=== PATIENT | male | born 1985 | race Caucasian/White ===

== ENCOUNTER 2019-12-08 07:45 | Day surgery (SDC) | payer SELFPAY ==
[2019-12-08] VITALS (11 sets, daily range): BP systolic 136–160; BP diastolic 71–107; PULSE 67–89; RESP 16–18; TEMP 36.4–36.6; O2SAT 98–100
[2019-12-08] MEDS: Fleet Enema 133 mL Enema PR (08:05)
[2019-12-08] MEDS: sodium chloride 0.9% 1,000 ML 30 ML IV (08:11)
--- NOTE | 2019-12-08 08:14 | ANES.PREANE2 ---
Pre-Anesthetic Assessment Pre-Anesthetic Assessment: Height/Weight: Height 1.8 m Weight 83.007 kg Temp Pulse Resp BP Pulse Ox 97.8 F 67 16 137/83 99 12/08/19 07:55 12/08/19 07:55 12/08/19 07:55 12/08/19 07:55 12/08/19 07:55 Preop Diagnosis: Anal fistula Proposed Procedure: Operation Date: 12/08/19 09:00 Proposed Procedures p Exam Under Anesthesia/Rectal/67825 06133 K60.5 K61.2(Not Applicable) - Leonel Choe MD s Fistulotomy Anal/possible/possible seton placement(Not Applicable) - Leonel Choe MD Familial anesthetic complications: None Was Beta Dorcas taken within 24 hours: N/A Last intake: Intake Last Liquid Date 12/07/19 Last Liquid Time 22:00 Last Solid Date 12/07/19 Last Solid Time 18:00 Social: Social History: Tobacco Exam: Pre-Anes Outpt Exam: alert, oriented x 3, clear to auscultation bilaterally and regular rate & rhythm Airway: Cervical ROM: WNL MP: 1 Dentition: Chipped Pulmonary: Pulmonary: None reported CV/HEM: CV/HEM: None reported : : None reported Hepatic: Hepatic: None reported GI: GI: None reported Musc/skel: Musc/skel: None reported Neuropsych: Neuropsych: None reported Anesthetic Plan: ASA status: 1 Anesthesia: General Risk of > 500 ml blood loss (7ml/kg in children): No Meds/Allergies Current Medications: Current Medications Generic Name Dose Route Start Last Admin Trade Name Freq PRN Reason Stop Dose Admin Sodium Chloride 1,000 mls @ 30 ml s/hr 12/08/19 07:30 12/08/19 08:11 Sodium Chloride 0.9% IV 12/09/19 07:29 30 mls/hr .Q24H ILIANA Administration PFSH Anesthesia PFSH: Medical History (Updated 12/04/19 @ 17:16 by Leonel Choe MD) Anorectal abscess Anorectal fistula Depression Surgical History H/O colonoscopy 2015 H/O vasectomy Family History Mother CAD (coronary artery disease) Cancer ovarian cancer Father CAD (coronary artery disease) Denies family history of Anesthesia complication Bleeding disorder Social History Smoking and tobacco status: current every day smoker Alcohol intake: current Alcohol intake frequency: few times a week Alcohol type: beer Lives independently: Yes Marital status: Single Current occupational status: employed History of recent travel: No Data Anesthesia Cardiac Studies: No Data to Display
--- NOTE | 2019-12-08 08:32 | W.PM.OPSUD ---
Surgery/Procedure H&P Update DATE OF PROCEDURE: December 08, 2019 DATE H&P PERFORMED: 12/03/19 H&P UPDATE INFORMATION: I have reviewed H&P completed within last 30 days, I have examined patient prior to procedure and No changes to prior documentation PREOP DIAGNOSIS: Anal fistula PLANNED PROCEDURE: Operation Date: 12/08/19 09:00 Proposed Procedures p Exam Under Anesthesia/Rectal/[id number] 52443 K60.5 K61.2(Not Applicable) - Leonel Choe MD s Fistulotomy Anal/possible/possible seton placement(Not Applicable) - Leonel Choe MD
--- NOTE | 2019-12-08 09:42 | PM.OP ---
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 He had just completed a course of antibiotics Procedure: The patient was taken to the operating room and intubated under general anesthesia after IV antibiotic had been administered and placed in left lateral position. The perianal area was prepped and draped in a sterile manner. Rectal exam under anesthesia did not reveal any significant hemorrhoids, fissures or any fistula openings. There were couple of areas of scarrinareas of scarring in the perianal region with sinus openings which were probed with a lacrimal probe and there were only 2 to 3 mm deep. I could not identify an abscess that needed to be drained or a fistula that needed seton placement or fistulotomy. The patient was extubated and transferred to recovery room in stable condition.
[2019-12-08] MEDS: fentaNYL 50 mcg/mL INJ 2mL IVP ×2 (09:48→09:53)
[2019-12-08] MEDS: meperidine 50 mg/mL INJ 12.5 MG IVP ×2 (09:48→09:54)
[2019-12-08] MEDS: ketorolac 30 mg/mL INJ IVP (10:00)
--- NOTE | 2019-12-08 10:48 | SUR.PHASEI ---
0939- ORAL AIRWAY OUT, SIMPLE MASK AT 6LPM, SAT 100%
== END 2019-12-08 10:50 | disposition home or self-care (01) ==
PROVIDERS: PCP Nurse Practitioner; Visit Provider Surgery
PROC: (CPT 45990; principal; 2019-12-08 09:00)
DX: K60.3 Anal fistula (principal); F17.210 Nicotine dependence, cigarettes, uncomplicated
CPT/HCPCS: 45990; 12345; 96365; J0131; J1885; J2175; J2704; J3010; J3490; J7030

== ENCOUNTER 2021-04-01 14:48 | Emergency (ER) | payer SELFPAY ==
--- NOTE | 2021-04-01 14:53 | XRR_ITS ---
PROCEDURE INFORMATION: Exam: XR Left Hand Exam date and time: 04/01/2021 2:53 PM Age: 35 years old Clinical indication: Injury or trauma; Other: Band saw; Laceration; Left; Ring finger TECHNIQUE: Imaging protocol: XR Left hand. Views: 3 or more views. COMPARISON: No relevant prior studies available. FINDINGS: Bones/joints: Normal. Soft tissues: Normal. XR/XR hand LT min 3V* [id number] IMPRESSION: Negative for fracture, dislocation or radiodense foreign body Radiation Dose CTDIVOL = (mGy): DLP = (mGy-cm)
[2021-04-01 15:02] VITALS: BP 139/77; PULSE 66; RESP 16; O2SAT 100; BMI 24.4
--- NOTE | 2021-04-01 15:14 | W.ED.UPPEXIN ---
HPI - Extremity Injury (Upper) General: Chief Complaint: Extremity Injury, Upper Stated Complaint: TRAuMA: R HAND IN BAND SAW Time Seen by Provider: 04/01/21 15:14 Source: patient Mode of arrival: ambulatory Limitations: no limitations History of Present Illness: HPI narrative: Patient is a 35-year-old male who presents to ED today with a complaint of a laceration to his left ring finger that he sustained while using a saw. Patient states his last tetanus was within the last 5 years. No other complaints or injuries at this time. complaint: injury to: left and finger Onset (ago): hour(s) Other Extremity Injury: Left: fingers (4th) Other injuries: none Place: home Severity: moderate Relieving factors: none Exacerbating factors: none Context: laceration Associated symptoms: Reports no associated symptoms Review of Systems Musc: Reports: extremity pain (L 4th finger) Skin/Breast: Reports: other (laceration to finger) Neuro: Denies: numbness in extremities or sensory changes PFS ED PFSH: Medical History (Updated 04/01/21 @ 16:11 by EMILY Mc) Anorectal abscess Anorectal fistula Depression Surgical History H/O colonoscopy 2016 H/O vasectomy Family History Mother CAD (coronary artery disease) Cancer ovarian cancer Father CAD (coronary artery disease) Denies family history of Anesthesia complication Bleeding disorder Social History Smoking and tobacco status: current every day smoker Alcohol intake: current Alcohol intake frequency: few times a week Alcohol type: beer Lives independently: Yes Marital status: Single Current occupational status: employed History of recent travel: No Physical Exam Const: COMMON NORMALS: no acute distress, average body habitus, patient oriented x3, no limitations, healthy appearing, alert and well nourished GENERAL APPEARANCE: anxious Extremity: GENERAL: Yes normal exam except as noted OTHER: pt with 1.5cm laceration to palmar pad of L index finger; no nail involvement; no visualized tendon lacerations; no bleeding currently; maintains ROM and sensory; cap refill normal Neuro: COMMON NORMALS: patient oriented x3 SENSORIUM/ORIENTATION: Yes alert Procedures Laceration Laceration 1: Site: hand (4th distal finger) Side (If applicable): left Size (cm): 1.5 Description: irregular Depth: simple, single layer Local Anesthetic: lidocaine 1% (digital block) Amount of anesthesia used (mL): 2.5 Pre-repair: wound explored and irrigated extensively Skin layer closed with: nylon Size (cm): 5-0 Number of sutures: 5 Technique: simple, interrupted Course Vital Signs: Vital signs: Vital Signs Pulse Rate 66 04/01/21 15:02 Respiratory Rate 16 04/01/21 15:02 Blood Pressure 139/77 04/01/21 15:02 Pulse Oximetry 100 04/01/21 15:02 MDM - Extremity Injury (Upper) MDM Narrative: Medical decision making narrative: Wound was copiously irrigated and closed as repaired. Patient was placed in a finger splint, given prescription for pain meds and antibiotics, and will recommend follow-up with orthopedics. Imaging Data^: XR L hand: My impression: non-displaced fx of L 4th distal phalanx Discharge Plan Discharge Patient Disposition: Home Clinical Impression: Open fracture of distal phalanx of finger of left hand Qualifiers: Encounter type: initial encounter Finger: ring finger Fracture alignment: nondisplaced Qualified Code(s): S62.665B - Nondisplaced fracture of distal phalanx of left ring finger, initial encounter for open fracture Condition: Stable Prescriptions: New cephalexin 500 mg capsule 500 mg PO Q6H 7 Days Qty: 28 RF: 0 hydrocodone-acetaminophen 5-325 mg tablet 1 tab PO Q6H PRN (Reason: pain) Qty: 14 RF: 0 No Action metronidazole [Flagyl] 500 mg tablet 500 mg PO Q8H Qty: 21 RF: 0 ciprofloxacin HCl [Cipro] 500 mg tablet 500 mg PO BID RF: 0 Discharge Orders: Discharge ED (Routine); Ordered 04/01/21 Ordered By: Pau Dominguez Referrals: Prasanth Townsend FNP [Primary Care Provider] - Patient Instructions: Fractures - Phalanx (Finger), Care For Your Stitches (ED), Finger Fracture (ED), Finger Laceration (ED), Opioid Safety Activity Restrictions/Additional Instructions: [facility] is committed to fighting the nationwide opiate epidemic. We are providing ALL patients with information regarding opiate safety. If you received opiate pain medication during your stay or if you received a prescription for opiate pain medication-please review this handout. If not, you may disregard. Thank you. As we discussed please keep wound clean with warm soap and water 2-3 times daily. Monitor for signs of infection such as redness, swelling, increased pain, or discharge. Please seek medical reevaluation of these occur. Fill and begin antibiotics immediately. You may take pain medications as needed for severe pain. Case management should contact you early this week to set you up with your follow-up orthopedic appointment. Sutures need to be removed in 7 to 10 days. You may return to the emergency department for this or the orthopedic clinic may remove them. Coding Level of Care Code ED Dry Cleaner for Komal Bell
--- NOTE | 2021-04-01 16:18 | PC.NURSE ---
FROG SPLINT AND COBAN APPLIED TO FINGER
--- NOTE | 2021-04-03 10:33 | PC.SOCIAL ---
Notified Janine at Ortho clinic regarding referral for ortho by ED provider Pau Dominguez. She will review and call patient/ family with appt.
--- NOTE | 2021-04-11 13:41 | DCPLANNER ---
Patient had a follow up appointment scheduled for 04.11.[address] Melendrez at [facility] - patient did attend appointment.
== END 2021-04-01 16:18 | disposition home or self-care (01) ==
PROVIDERS: Emergency Provider Physician Assistant; PCP Nurse Practitioner
DX: S62.665B Nondisplaced fracture of distal phalanx of left ring finger, initial encounter for open fracture (principal); F17.200 Nicotine dependence, unspecified, uncomplicated; W27.0XXA Contact with workbench tool, initial encounter
CPT/HCPCS: 12001; 73130; 99282